=== PATIENT | male | born 1980 | race Caucasian/White ===

== ENCOUNTER 2023-11-28 22:04 | Emergency (ER) | payer OTHER ==
[~2023-11-28] VITALS: Ht 182.9 cm; Wt 102.1 kg
[2023-11-28 22:05] VITALS: BP 132/88; PULSE 64; RESP 17; TEMP 97.2; O2SAT 98
[2023-11-29] MEDS ORDERED: AMPICILLIN/SULBACTAM 3 GM in NACL 0.9% 100 ML IV ONE (01:20)
[2023-11-29] MEDS ORDERED: KETOROLAC 30 MG/ML VIAL IVP ONE (01:20)
[2023-11-29] MEDS ORDERED: NACL 0.9% 1,000 ML IV ONE (01:20)
[2023-11-29] MEDS: ceFAZolin 1,000 MG VIAL IM ONE (01:58)
[2023-11-29] MEDS: LIDOCAINE/EPI 1% 1:100000 20 ML VIAL INJ ONE (01:59)
[2023-11-29] MEDS ORDERED: BACITRACIN OINT 500 UNITS/GM PKT TP ONE (02:06)
[2023-11-29] MEDS ORDERED: ACET-5629 PO (02:06)
[2023-11-29] MEDS ORDERED: CEPH500C16 PO (02:07)
[2023-11-29] MEDS ORDERED: AMOX1TAB8 PO (02:12)
[2023-11-29 02:47] VITALS: BP 132/88; PULSE 64; RESP 17; TEMP 97.2; O2SAT 98
== END 2023-11-29 02:10 | disposition home or self-care (01) ==
LOC: MED 22:04
DX: S01.111A Laceration without foreign body of right eyelid and periocular area, initial encounter (principal); Z79.899 Other long term (current) drug therapy; W54.0XXA Bitten by dog, initial encounter; Y93.89 Activity, other specified; Y92.89 Other specified places as the place of occurrence of the external cause; Y99.8 Other external cause status
CPT/HCPCS: 12013; 90471; 90715; 96372; 99284; J0690; J2001